=== PATIENT | female | born 1945 | race Caucasian/White ===

== ENCOUNTER 2017-02-10 13:22 | Outpatient (RCR) | payer MEDICARE | END 2017-02-10 14:43 | disposition home or self-care (01) | LOC: ONC 13:22 | PROVIDERS: ATTEND Radiology Radiation Oncology | DX: Z51.0 Encounter for antineoplastic radiation therapy (principal); C20 Malignant neoplasm of rectum | CPT/HCPCS: 77290; 77300; 77301; 77334; 77336; 77338; 77386; 77470; 99214 ==

== ENCOUNTER 2017-02-21 13:53 | Outpatient (RCR) | payer MEDICARE, OTHER | END 2017-05-14 | disposition home or self-care (01) | LOC: ONC 13:53 | PROVIDERS: ATTEND Radiology Radiation Oncology | DX: Z51.0 Encounter for antineoplastic radiation therapy (principal); C20 Malignant neoplasm of rectum | CPT/HCPCS: 77336; 77386 ==